=== PATIENT | male | born 1945 | race American Indian/Alaskan Native ===

== ENCOUNTER 2018-11-12 10:01 | Observation (INO) | payer MEDICARE ==
--- NOTE | 2018-11-12 10:51 | ED PDOC ---
Arrival/HPI - General Chief Complaint: Dizziness/Lightheaded Time Seen by Provider: 11/12/18 10:28 Historian: Patient - History of Present Illness Narrative History of Present Illness (Text): 11/12/18 10:28 Mazin Cabezas is a 73 year old male, with a past medical history of hypertension, prostatectomy, diverticulitis, and abdominal hernias, who presents to the emergency department complaining of generalized weakness since this morning. Patient informs he was walking to his car from spiritism when he felt weak, dizzy, and nauseous walking out of the building. Patient also notes feeling sweaty when getting into his car. Patient takes amolidipine and quinapril for hypertension. Patient also informs taking baby aspirin. Patient denies any symptoms upon waking up this morning or after taking anti- hypertensive medications. Patient denies chest pain, shortness of breath, fevers, chills, headache, shortness of breath, dyspnea on exertion, cough, abdominal pain, vomiting, diarrhea, back pain, neck pain, or any other complain t. PMD: Dr. Hastings Time/Duration: 1-3 hours Symptom Onset: Sudden Symptom Course: Improving Activities at Onset: Light Context: Walking Past Medical History - Provider Review Nursing Documentation Reviewed: Yes - Tetanus Immunization Tetanus Immunization: Unknown - Past Medical History Past Medical History: No Previous - Cardiac Hx Hypertension: Yes Hx Pacemaker: No - Pulmonary Hx Respiratory Disorders: No - Neurological Hx Paralysis: No - HEENT Hx HEENT Disorder: (WEARS RX GLASSES) - Renal Other/Comment: Prostate cancer - Hematological/Oncological Hx Blood Transfusions: No Hx Blood Transfusion Reaction: No - Musculoskeletal/Rheumatological Hx Musculoskeletal Disorders: Yes (L AND R FOOT SURGERY) - Gastrointestinal Hx Diverticulitis: Yes (SIGMOID DIVERTICULITIS) - Genitourinary/Gynecological Hx Genitourinary Disorders: Yes Hx Prostate Problems: Yes (PROSTATECTOMY WITH REMOVAL OF SEMINAL VESICLE) - Psychiatric Hx Emotional Abuse: No Hx Physical Abuse: No Hx Substance Use: No - Surgical History Hx Orthopedic Surgery: Yes (L FOOT, R FOOT) Other/Comment: PROSTATECTOMY 1999 - Anesthesia Hx Anesthesia Reactions: No Hx Malignant Hyperthermia: No - Suicidal Assessment Feels Threatened In Home Enviroment: No Family/Social History - Physician Review Nursing Documentation Reviewed: Yes Family/Social History: No Known Family HX Smoking Status: Never Smoked Hx Alcohol Use: No Hx Substance Use: No Hx Substance Use Treatment: No Allergies/Home Meds Allergies/Adverse Reactions: Allergies No Known Allergies Allergy (Verified 11/11/14 20:41) Home Medications: Home Meds Medication Instructions Recorded Confirmed Aspirin [Aspirin Chewable] 81 mg PO DAILY 11/12/18 11/12/18 Lisinopril [Zestril] 10 mg PO DAILY 11/12/18 11/12/18 amLODIPine [Norvasc] 5 mg PO DAILY 11/12/18 11/12/18 Review of Systems - Physician Review All systems were reviewed & negative as marked: Yes - Review of Systems Respiratory: absent: SOB Cardiovascular: absent: Chest Pain Physical Exam - Physical Exam Narrative Physical Exam (Text): 11/12/18 10:28 Constitutional: No acute distress. Head: Normocephalic. Atraumatic. Eyes: PERRL. ENT: Moist mucous membranes. Neck: Supple. Cardiovascular: Regular rate. Chest: No tenderness. Respiratory: Clear to auscultation bilaterally. GI: Soft. Nontender. Nondistended. Back: No CVA tenderness. Musculoskeletal: No tenderness or swelling of extremities. Skin: No rash. Neurologic: Alert, no focal deficit. Vital Signs Reviewed: Yes Vital Signs Temp Pulse Resp BP Pulse Ox 11/12/18 10:19 97.9 F 80 18 139/85 100 Temperature: Afebrile Blood Pressure: Normal Pulse: Regular Respiratory Rate: Normal Appearance: Positive for: Well-Appearing, Non-Toxic, Comfortable Pain Distress: None Mental Status: Positive for: Alert and Oriented X 3 Medical Decision Making ED Course and Treatment: 11/12/18 10:28 Impression: Patient is a 73 year old male who presents to the emergency department complaining of generalized weakness since this morning. Patient denies chest pain or shortness of breath. Plan: -- EKG -- Chest X-Ray -- Labs -- Aspirin -- Reassess and disposition Prior Visits: Notes and results from previous visits were reviewed. Progress Notes: 11/12/18 10:14 Reviewed EKG, shows: NSR at 80 BPM. Inverted T waves laterally. No ST elevations. 11/12/18 12:00 Chest X-Ray shows: IMPRESSION: No active pulmonary disease. 11/12/18 12:[address] Kyle (covering for Dr. Cheung, medical service). Patient admitted for cardiac observation. - Scribe Statement The provider has reviewed the documentation as recorded by the Scribe Romel Harris All medical record entries made by the Scribe were at my direction and personally dictated by me. I have reviewed the chart and agree that the record accurately reflects my personal performance of the history, physical exam, medical decision making, and the department course for this patient. I have also personally directed, reviewed, and agree with the discharge instructions and disposition. Disposition/Present on Arrival - Present on Arrival Any Indicators Present on Arrival: No History of DVT/PE: No History of Uncontrolled Diabetes: No Urinary Catheter: No History of Decub. Ulcer: No History Surgical Site Infection Following: None - Disposition Have Diagnosis and Disposition been Completed?: Yes Diagnosis: Chest pain Disposition: HOSPITALIZED Disposition Time: 12:06 Patient Plan: Observation, Telemetry Condition: GOOD
[2018-11-12 11:19] LABS: BASO # 0.02 K/mm3 (0.0-2.0); BASO % 0.3 % (0.0-3.0); EOS # 0.1 (0.0-0.7); EOS % 0.9 % (1.5-5.0); HEMOGLOBIN 15.3 g/dL (14.0-18.0); LYMPH # 1.3 (1.2-3.4); MEAN CELL VOLUME 87.2 fl (80.0-105.0); MEAN CORPUSCULAR HEMOGLOBIN 28.3 pg (25.0-35.0); MEAN CORPUSCULAR HGB CONC 32.5 g/dl (31.0-37.0); MEAN PLATELET VOLUME 9.7 fl (7.0-11.0); MONO # 0.8 (0.1-0.6); MONO % 10.5 % (1.0-6.0); RBC 5.4 10^6/uL (3.5-6.1); RED CELL DISTRIBUTION WIDTH 14.5 % (11.5-14.5); WHITE BLOOD COUNT 7.8 10^3/uL (4.5-11.0)
[2018-11-12 11:26] LABS: INR 1.11; PARTIAL THROMBOPLASTIN TIME 33.1 Seconds (26.9-38.3); PROTHROMBIN TIME 12.5 SECONDS (9.4-12.5)
[2018-11-12 11:44] LABS: ALB/GLOB RATIO 1.1 (1.1-1.8); ALBUMIN 4.3 g/dL (3.0-4.8); ALT/SGPT 28 U/L (7-56); AST/SGOT 29 U/L (17-59); BLOOD UREA NITROGEN 17 mg/dL (7-21); CALCIUM 9.2 mg/dL (8.4-10.5); GFR NON-AFRICAN AMERICAN 54
[2018-11-12 11:56] LABS: TROPONIN I < 0.01 ng/mL
--- NOTE | 2018-11-12 12:04 | RAD ---
Date of service: 11/12/2018 HISTORY: gen weakness, diaphoresis, nausea COMPARISON: 11/10/2014 FINDINGS: LUNGS: The lungs are well inflated and clear. PLEURA: No pleural effusions or pneumothorax. CARDIOVASCULAR: The heart is normal in size. No aortic atherosclerotic calcifications present. OSSEOUS STRUCTURES: Within normal limits for the patient's age. VISUALIZED UPPER ABDOMEN: Normal. OTHER FINDINGS: None. IMPRESSION: No active pulmonary disease.
[2018-11-12 14:22] VITALS: BMI 31.3
--- NOTE | 2018-11-12 19:44 | CARD ---
APPROVED REPORT Date of service: 11/12/2018 EKG Measurement Heart [id number] <Conclusion> Poor data quality, interpretation may be adversely affected Normal sinus rhythm Voltage criteria for left ventricular hypertrophy Nonspecific T wave abnormality Prolonged QT Abnormal ECG
--- NOTE | 2018-11-12 22:33 | HP ---
DATE OF EXAM: 11/12/2018 HISTORY OF PRESENT ILLNESS: The patient is a 73-year-old male patient of Dr. Hastings. He states this morning, when he woke up, he was walking to his car to go to [employer] where he felt weak, dizzy, he became diaphoretic and then felt nauseous. He did not have any chest pain. No history of shortness of breath or palpitation. No history of nausea, vomiting, or diarrhea previous night. No history of fever or chills. PAST MEDICAL HISTORY: Significant for hypertension and hyperlipidemia. PAST SURGICAL HISTORY: Significant for ventral hernia repair, history of prostatectomy in 1999 and foot surgery in 1990. ALLERGIES: NOT ALLERGIC TO ANY MEDICATION. SOCIAL HISTORY: He is a store promoter. He lives with his . Denies smoking, drinking, or alcohol use. FAMILY HISTORY: Significant for mom being diabetic and hypertensive and father only had hypertension. MEDICATIONS: At home; he is on amlodipine 5 mg daily, lisinopril 10 mg daily, aspirin 81 mg daily. PHYSICAL EXAMINATION GENERAL: He is awake, alert, oriented, able to communicate. VITAL SIGNS: He is afebrile. Pulse 79, respirations 18, blood pressure 139/50, . LUNGS: Bilateral fair airflow. No rhonchi or crackles. HEART: S1 and S2 audible. ABDOMEN: Soft, nontender. No rebound. No guarding. NEUROLOGIC: The patient is awake and alert, able to communicate. LABORATORY DATA: WBC 7.8, hemoglobin 15, hematocrit 47, platelets 62. PT 12.5, INR 1.11. Chemistry; sodium 141, potassium 4.6, chloride 104, CO2 of 21, BUN 17, creatinine 1.3, blood sugar 109. LFTs are within normal limits. CPK is 346. Troponin 0.01. X-ray of the chest is unremarkable. EKG shows nonspecific T-wave changes. ASSESSMENT: 1. Diaphoresis and generalized weakness. 2. Hypertension. 3. History of hyperlipidemia. PLAN: The patient will be placed on observation. We will give him aspirin and resume his medications. Follow up his cardiac enzymes. Place him on quality assurance monitor final. Cardiology consult has been requested by Dr. Posadas. Melisa Kyle MD [facility] # [id number]
[2018-11-13 06:40] VITALS: O2SAT 98
[2018-11-13 07:35] LABS: ALB/GLOB RATIO 1.1 (1.1-1.8); ALT/SGPT 20 U/L (7-56); AST/SGOT 31 U/L (17-59); BLOOD UREA NITROGEN 15 mg/dL (7-21); CALCIUM 8.9 mg/dL (8.4-10.5); GFR NON-AFRICAN AMERICAN 59
[2018-11-13 07:37] LABS: FREE T4 1.18 ng/dL (0.78-2.19)
--- NOTE | 2018-11-13 12:17 | CP.PCM.PN ---
<Radha Elkins - Last Filed: 11/13/18 12:12> Subjective - Date & Time of Evaluation Date of Evaluation: 11/13/18 Time of Evaluation: 07:00 - Subjective Subjective: IM Resident progress note for Dr. Alonzo's service Patient with no acute events overnight. Patient states he's able to walk to the restroom with no dizziness, and no diaphoresis. Patient denies cp or sob. No fever or chills. Objective - Vital Signs/Intake and Output Vital Signs (last 24 hours): Temp Pulse Resp BP Pulse Ox 97.8 F 92 H 20 131/84 98 11/13/18 06:00 11/13/18 10:23 11/13/18 06:00 11/13/18 10:23 11/13/18 06:00 Intake and Output: 11/13/18 11/13/18 06:59 18:59 Intake Total 480 Balance 480 - Medications Medications: Current Medications Acetaminophen (Tylenol 325mg Tab) 650 mg PO Q6H PRN PRN Reason: Fever >100.4 F Amlodipine Besylate (Norvasc) 5 mg PO DAILY [facility] Last Admin: 11/13/18 10:23 Dose: 5 mg Aspirin (Aspirin Chewable) 81 mg PO DAILY [facility] Last Admin: 11/13/18 10:23 Dose: 81 mg Lisinopril (Zestril) 10 mg PO DAILY [facility] Last Admin: 11/13/18 10:22 Dose: 10 mg - Labs Labs: 11/12/18 11:03 11/13/18 06:30 PT 12.5 SECONDS (9.4-12.5) 11/12/18 11:03 INR 1.11 11/12/18 11:03 APTT 33.1 Seconds (26.9-38.3) 11/12/18 11:03 - Constitutional Appears: No Acute Distress - Head Exam Head Exam: ATRAUMATIC, NORMAL INSPECTION, NORMOCEPHALIC - Eye Exam Eye Exam: EOMI, Normal appearance, PERRL. absent: Scleral icterus Pupil Exam: NORMAL ACCOMODATION - ENT Exam ENT Exam: Mucous Membranes Moist - Neck Exam Neck Exam: Normal Inspection - Respiratory Exam Respiratory Exam: Clear to Ausculation Bilateral, Wheezes, NORMAL BREATHING PATTERN. absent: Chest Wall Tenderness, Rales, Rhonchi, Respiratory Distress, Stridor - Cardiovascular Exam Cardiovascular Exam: REGULAR RHYTHM, RRR, +S1, +S2. absent: Bradycardia, Tachycardia, Diastolic murmur, Gallop, Irregular Rhythm, JVD, Rubs, Murmur - GI/Abdominal Exam GI & Abdominal Exam: Soft, Normal Bowel Sounds. absent: Distended, Firm, Guarding, Rigid, Tenderness, Hernia, Hyperactive Bowel Sounds, Rebound - Extremities Exam Extremities Exam: Normal Inspection. absent: Pedal Edema - Back Exam Back Exam: NORMAL INSPECTION - Neurological Exam Neurological Exam: Alert, Awake, Oriented x3 - Psychiatric Exam Psychiatric exam: Normal Affect, Normal Mood - Skin Skin Exam: Dry, Intact, Normal Color, Warm Assessment and Plan - Assessment and Plan (Free Text) Assessment: 1) Dizziness and generalized weakness- r/o atypical presentation of ACS, r/o orthostatc hypotention 2) Htn Plan: Troponin x3 negative. Thyroid panel is normal. Patient is not diabetic. Prolonged QTc, LVH and non specific T wave changes on ekg. Will continue with Norvasc 5 mg daily, and lisinopril 10 mg for htn. Patient is also on 81 mg aspirin. Tylenol prn for fever. Will add orthostatic vitals. Pending echo and cardiology evaluation. External compression device for dvt prophylaxis. Continue with heart healthy and 2 gram sodium diet. Patient seen, examined and case discussed with Dr. Alonzo. <Damion Alonzo S - Last Filed: 11/13/18 15:15> Subjective - Subjective Subjective: Pt seen and examined by me. I have reviewed the note of the medical psychotherapist and I agree with it. I have discussed the assessment and plan with the resident. I have reviewed the medications and the last labs. Objective - Vital Signs/Intake and Output Vital Signs (last 24 hours): Temp Pulse Resp BP Pulse Ox 97.7 F 93 H 18 126/84 98 11/13/18 12:00 11/13/18 12:00 11/13/18 12:00 11/13/18 12:00 11/13/18 06:00 Intake and Output: 11/13/18 11/13/18 06:59 18:59 Intake Total 480 Balance 480 - Medications Medications: Current Medications Acetaminophen (Tylenol 325mg Tab) 650 mg PO Q6H PRN PRN Reason: Fever >100.4 F Amlodipine Besylate (Norvasc) 5 mg PO DAILY [facility] Last Admin: 11/13/18 10:23 Dose: 5 mg Aspirin (Aspirin Chewable) 81 mg PO DAILY [facility] Last Admin: 11/13/18 10:23 Dose: 81 mg Lisinopril (Zestril) 10 mg PO DAILY [facility] Last Admin: 11/13/18 10:22 Dose: 10 mg - Labs Labs: 11/12/18 11:03 11/13/18 06:30 PT 12.5 SECONDS (9.4-12.5) 11/12/18 11:03 INR 1.11 11/12/18 11:03 APTT 33.1 Seconds (26.9-38.3) 11/12/18 11:03
[2018-11-13 12:26] VITALS: BP 126/84; PULSE 93; RESP 18; TEMP 97.7
--- NOTE | 2018-11-13 17:50 | CP.PCM.DIS ---
<Radha Elkins - Last Filed: 11/13/18 17:46> Provider - Provider Date of Admission: 11/12/18 12:21 Attending physician: Damion Alonzo MD Primary care physician: Cameron Hastings MD Consults: 11/12/18 12:23 Cardiology Consult Routine Comment: Consulting Provider: Ralph Posadas Consulting Physician: Ralph Posadas Reason for Consult: r/o ACS Time Spent in preparation of Discharge (in minutes): 45 Diagnosis - Discharge Diagnosis (1) Dizziness Status: Resolved (2) Generalized weakness Status: Resolved (3) Hypertension Status: Chronic Hospital Course - Lab Results Lab Results: Most Recent Lab Values WBC 7.8 10^3/uL (4.5-11.0) 11/12/18 11:03 RBC 5.40 10^6/uL (3.5-6.1) 11/12/18 11:03 Hgb 15.3 g/dL (14.0-18.0) 11/12/18 11:03 Hct 47.1 % (42.0-52.0) 11/12/18 11:03 MCV 87.2 fl (80.0-105.0) 11/12/18 11:03 MCH 28.3 pg (25.0-35.0) 11/12/18 11:03 MCHC 32.5 g/dl (31.0-37.0) 11/12/18 11:03 RDW 14.5 % (11.5-14.5) 11/12/18 11:03 Plt Count 262 10^3/uL (120.0-450.0) 11/12/18 11:03 MPV 9.7 fl (7.0-11.0) 11/12/18 11:03 Neut % (Auto) 71.3 % (50.0-68.0) H 11/12/18 11:03 Lymph % (Auto) 17.0 % (22.0-35.0) L 11/12/18 11:03 [place] % (Auto) 10.5 % (1.0-6.0) H 11/12/18 11:03 Eos % (Auto) 0.9 % (1.5-5.0) L 11/12/18 11:03 Baso % (Auto) 0.3 % (0.0-3.0) 11/12/18 11:03 Lymph # (Auto) 1.3 (1.2-3.4) 11/12/18 11:03 [place] # (Auto) 0.8 (0.1-0.6) H 11/12/18 11:03 Eos # (Auto) 0.1 (0.0-0.7) 11/12/18 11:03 Baso # (Auto) 0.02 K/mm3 (0.0-2.0) 11/12/18 11:03 Absolute Neuts (auto) 5.57 (1.4-6.5) 11/12/18 11:03 PT 12.5 SECONDS (9.4-12.5) 11/12/18 11:03 INR 1.11 11/12/18 11:03 APTT 33.1 Seconds (26.9-38.3) 11/12/18 11:03 Sodium 140 mmol/L (132-148) 11/13/18 06:30 Potassium 3.9 mmol/L (3.6-5.0) 11/13/18 06:30 Chloride 106 mmol/L (98-107) 11/13/18 06:30 Carbon Dioxide 24 mmol/L (21-33) 11/13/18 06:30 Anion Gap 14 (10-20) 11/13/18 06:30 BUN 15 mg/dL (7-21) 11/13/18 06:30 Creatinine 1.2 mg/dl (0.8-1.5) 11/13/18 06:30 Est GFR ( Amer) > 60 11/13/18 06:30 Est GFR (Non-Af Amer) 59 11/13/18 06:30 Random Glucose 100 mg/dL (70-110) 11/13/18 06:30 Calcium 8.9 mg/dL (8.4-10.5) 11/13/18 06:30 Total Bilirubin 0.7 mg/dL (0.2-1.3) 11/13/18 06:30 AST 31 U/L (17-59) 11/13/18 06:30 ALT 20 U/L (7-56) 11/13/18 06:30 Alkaline Phosphatase 57 U/L (38-126) 11/13/18 06:30 Total Creatine Kinase 346 U/L (35-230) H 11/12/18 11:25 CK-MB (CK-2) 2.0 ng/mL (0.0-3.6) 11/12/18 11:25 CK-MB (CK-2) % Cancelled 11/12/18 11:25 Troponin I < 0.01 ng/mL 11/12/18 21:59 Total Protein 7.8 g/dL (5.8-8.3) 11/13/18 06:30 Albumin 4.0 g/dL (3.0-4.8) 11/13/18 06:30 Globulin 3.8 gm/dL 11/13/18 06:30 Albumin/Globulin Ratio 1.1 (1.1-1.8) 11/13/18 06:30 Free T4 1.18 ng/dL (0.78-2.19) 11/13/18 06:30 TSH 3rd Generation 2.24 mIU/mL (0.46-4.68) 11/13/18 06:30 - Hospital Course Hospital Course: Patient is a 73 y/o with pmh of htn who presented with dizziness, generalized weakness and diaphoresis while ambulating. Patient was admitted on observation to rule out atypical presentation of ACS. Troponin was negative x3, ekg with no acute st/t wave changes. Chest x-ay and orthostatic vitals were normal. Patient was hemodynamically stable and no acute events on tele. Patient was seen by filter cleaner who recommended patient be discharged and follow up as outpatient f or further cardiac work up. Diet: 2 gram sodium, heart healthy. Activity: resume as tolerated. - Date & Time of H&P Date of H&P: 11/12/18 Time of H&P: 14:04 Discharge Exam - Head Exam Head Exam: ATRAUMATIC, NORMAL INSPECTION, NORMOCEPHALIC Additional comments: Please see today's progress note for complete h&p. Discharge Plan - Follow Up Plan Condition: GOOD Disposition: HOME/ ROUTINE Instructions: Heart Healthy Diet, Dizziness, Nonvertigo, (DC) Additional Instructions: Please follow up with your primary care doctor in 5-7 days. Resume all your home medications Follow up with the filter cleaner in 1 weeks Please return if the symptoms returns or call 911. Referrals: Cameron Hastings MD [Primary Care Provider] - Ralph Posadas MD [Staff Provider] - <Damion Alonzo - Last Filed: 11/13/18 18:11> Provider - Provider Date of Admission: 11/12/18 12:21 Attending physician: Damion Alonzo MD Primary care physician: Cameron Hastings MD Consults: 11/12/18 12:23 Cardiology Consult Routine Comment: Consulting Provider: Ralph Posadas Consulting Physician: Ralph Posadas Reason for Consult: r/o ACS Hospital Course - Lab Results Lab Results: Most Recent Lab Values WBC 7.8 10^3/uL (4.5-11.0) 11/12/18 11:03 RBC 5.40 10^6/uL (3.5-6.1) 11/12/18 11:03 Hgb 15.3 g/dL (14.0-18.0) 11/12/18 11:03 Hct 47.1 % (42.0-52.0) 11/12/18 11:03 MCV 87.2 fl (80.0-105.0) 11/12/18 11:03 MCH 28.3 pg (25.0-35.0) 11/12/18 11:03 MCHC 32.5 g/dl (31.0-37.0) 11/12/18 11:03 RDW 14.5 % (11.5-14.5) 11/12/18 11:03 Plt Count 262 10^3/uL (120.0-450.0) 11/12/18 11:03 MPV 9.7 fl (7.0-11.0) 11/12/18 11:03 Neut % (Auto) 71.3 % (50.0-68.0) H 11/12/18 11:03 Lymph % (Auto) 17.0 % (22.0-35.0) L 11/12/18 11:03 [place] % (Auto) 10.5 % (1.0-6.0) H 11/12/18 11:03 Eos % (Auto) 0.9 % (1.5-5.0) L 11/12/18 11:03 Baso % (Auto) 0.3 % (0.0-3.0) 11/12/18 11:03 Lymph # (Auto) 1.3 (1.2-3.4) 11/12/18 11:03 [place] # (Auto) 0.8 (0.1-0.6) H 11/12/18 11:03 Eos # (Auto) 0.1 (0.0-0.7) 11/12/18 11:03 Baso # (Auto) 0.02 K/mm3 (0.0-2.0) 11/12/18 11:03 Absolute Neuts (auto) 5.57 (1.4-6.5) 11/12/18 11:03 PT 12.5 SECONDS (9.4-12.5) 11/12/18 11:03 INR 1.11 11/12/18 11:03 APTT 33.1 Seconds (26.9-38.3) 11/12/18 11:03 Sodium 140 mmol/L (132-148) 11/13/18 06:30 Potassium 3.9 mmol/L (3.6-5.0) 11/13/18 06:30 Chloride 106 mmol/L (98-107) 11/13/18 06:30 Carbon Dioxide 24 mmol/L (21-33) 11/13/18 06:30 Anion Gap 14 (10-20) 11/13/18 06:30 BUN 15 mg/dL (7-21) 11/13/18 06:30 Creatinine 1.2 mg/dl (0.8-1.5) 11/13/18 06:30 Est GFR ( Amer) > 60 11/13/18 06:30 Est GFR (Non-Af Amer) 59 11/13/18 06:30 Random Glucose 100 mg/dL (70-110) 11/13/18 06:30 Calcium 8.9 mg/dL (8.4-10.5) 11/13/18 06:30 Total Bilirubin 0.7 mg/dL (0.2-1.3) 11/13/18 06:30 AST 31 U/L (17-59) 11/13/18 06:30 ALT 20 U/L (7-56) 11/13/18 06:30 Alkaline Phosphatase 57 U/L (38-126) 11/13/18 06:30 Total Creatine Kinase 346 U/L (35-230) H 11/12/18 11:25 CK-MB (CK-2) 2.0 ng/mL (0.0-3.6) 11/12/18 11:25 CK-MB (CK-2) % Cancelled 11/12/18 11:25 Troponin I < 0.01 ng/mL 11/12/18 21:59 Total Protein 7.8 g/dL (5.8-8.3) 11/13/18 06:30 Albumin 4.0 g/dL (3.0-4.8) 11/13/18 06:30 Globulin 3.8 gm/dL 11/13/18 06:30 Albumin/Globulin Ratio 1.1 (1.1-1.8) 11/13/18 06:30 Free T4 1.18 ng/dL (0.78-2.19) 11/13/18 06:30 TSH 3rd Generation 2.24 mIU/mL (0.46-4.68) 11/13/18 06:30 - Hospital Course Hospital Course: Pt seen and examined by me. I have reviewed the note of the medical practice assistant and I agree with it. I have discussed the assessment and plan with the resident. I have reviewed the medications and the last labs.
--- NOTE | 2018-11-14 00:04 | CON ---
DATE: 11/13/2018 REQUESTING PHYSICIAN: Dr. Alonzo REASON FOR CONSULTATION: Dizziness, near syncope. HISTORY: This is a 73-year-old man with a history of hypertension, who had a near syncopal event yesterday. He states that he had awakened and was in his normal state and had a small breakfast. When walking toward his car, he felt diaphoretic, nauseated, and weak. He was unaware of any palpitations. He denied any chest pain or dyspnea. His symptoms persisted for approximately 30 minutes. He became concerned and was brought to the emergency room and admitted. Initial electrocardiogram and blood work were unremarkable. He did have a short run of atrial fibrillation this morning. He denies any prior cardiac history. He has had no prior syncope. He underwent a stress test 4 or 5 years ago, which was reportedly unremarkable. PAST HISTORY: Notable for problems mentioned above. He has had a history of prostate cancer for which he underwent prostatectomy. He has also had diverticulitis in the past and inguinal hernia repair. He has had podiatric surgery as well. He has been cancer-free from prostate cancer for 19 years. MEDICATIONS AT HOME: Include aspirin, lisinopril, and amlodipine. ALLERGIES: NONE. SOCIAL HISTORY: He does not smoke or drink. He is retired. Lives with his . FAMILY HISTORY: Both parents from age-related illness. REVIEW OF SYSTEMS: Ten-point review of systems is otherwise unremarkable. He states he is fairly active. PHYSICAL EXAMINATION: GENERAL: He is a middle-aged man who appears comfortable at rest. VITAL SIGNS: His blood pressure is 130/80 with a pulse of 82, respirations are 16. No orthostasis was noted. HEENT: Normocephalic, atraumatic. NECK: Supple. No JVD noted. CHEST: Clear to auscultation and percussion. HEART: PMI in normal position. Soft systolic murmur is present at left sternal border. ABDOMEN: Soft, nontender, with normoactive bowel sounds. EXTREMITIES: No clubbing, cyanosis, or edema. SKIN: Warm and dry. PSYCHIATRIC: Normal mood and affect. NEUROLOGIC: Alert and oriented x3. No gross motor or sensory deficits noted. DIAGNOSTIC DATA: Potassium is 3.9, BUN and creatinine are 15 and 1.2. White count 7.8, hemoglobin and hematocrit of 15.3 and 47.1 with platelet count of 262,000. Three sets of cardiac enzymes are negative. Electrocardiogram reveals sinus rhythm with voltage criteria for LVH and mild QT prolongation. Chest x-ray reveals normal cardiac silhouette with clear lung sy. IMPRESSION: 1. Near syncope. Symptoms appeared most likely vasovagal in nature. 2. Short run of atrial fibrillation this morning, unclear if this played any role in his presenting symptoms with paroxysmal rapid atrial fibrillation as an underlying cause. 3. History of hypertension. 4. Rest of problems as noted. RECOMMENDATIONS: From a cardiac standpoint, he appears stable for discharge home at this time. An outpatient stress test and echocardiogram will be arranged. If he has recurrent symptoms, a 24-hour Holter monitor or 30-day event monitor can be provided. He was cautioned to avoid volume depletion and maintain adequate nutritional intake. His current medications will continue. Outpatient followup has been arranged. Thank you for this consultation. Ralph Posadas MD MTDD
--- NOTE | 2018-11-14 02:32 | DS ---
HOSPITAL COURSE: The patient was seen and examined. I do agree with the note of the director of graduate medical education. I was involved in the plan of care with the resident. The patient had come into the hospital because of dizziness. The patient currently feels better. He had troponins which were negative x3. The patient was seen by Cardiology and cleared for discharge. The patient's was at the bedside, I did speak to her regarding the case. She knows that she is going to follow with Dr. Hastings as well as Dr. Posadas, her assembling machine operator. The patient is on Norvasc for hypertension, as well as lisinopril, this will be continued at home. He is also on aspirin. He is advised to come back to the hospital if his symptoms worsen or reoccurred. Damion Alonzo MD
== END 2018-11-13 16:20 | disposition home or self-care (01) ==
LOC: ED 10:01 → ERH 12:21 → 2RNO 13:33
PROVIDERS: ADMIT Internal Medicine; ATTEND Internal Medicine Nephrology
DX: R53.1 Weakness (principal); R55 Syncope and collapse; R61 Generalized hyperhidrosis; I10 Essential (primary) hypertension; E78.5 Hyperlipidemia, unspecified; Z85.46 Personal history of malignant neoplasm of prostate; Z90.79 Acquired absence of other genital organ(s)
CPT/HCPCS: 36415; 71045; 80053; 82550; 82553; 84439; 84443; 84484; 85025; 85610; 85730; 93005; 99284; G0378